=== PATIENT | male | born 1965 | race Caucasian/White ===

== ENCOUNTER 2017-06-03 11:34 | Emergency (ER) | payer BC ==
[~2017-06-03] VITALS: Ht 177.8 cm; Wt 86.2 kg
--- NOTE | ~2017-06-03 | CR142 ---
[facility] A Service of [facility] RADIOLOGY TEXT RESULTS PATIENT: SEGREI BEATTY LOCATION: SED : 65 UNIT #: [id number] AGE: [address]: DONNY OLSON SEX: M ORDER DR: [id number] [place] [id number] E MR#: [id number] Acc #: [id number] NAME: SERGEI BEATTY : 1965 SEX: M STUDY DATE/TIME: 06/03/2017 11:59 UNIT: SED ROOM: STUDY DESCRIPTION: CR Hand Min 3 Views Rt Attending Physician: Michelle Oro Ordering Physician: Michelle Oro Primary Care Physician: No Primary Care Physician MEDICAL IMAGING REPORT This report is preliminary unless electronic signature is present. EXAM 3 views right hand INDICATION Right hand pain and decreased mobility for 1 month. No known injury. FINDINGS No acute fracture or subluxation of the right hand is identified. Really don't see any significant degenerative change. No aggressive osseous abnormalities are seen. I do think the patient may have some soft tissue swelling about the wrist. IMPRESSION No acute findings involving the hand. I do question if the patient has some soft tissue swelling about the wrist. Dictated by... Jenn Pink M.D. THIS IS AN ELECTRONICALLY VERIFIED REPORT Jenn Pink M.D. at 06/04/2017 5:04 PM AFF/df TD: 06/04/2017 12:35 JOB #: [id number] MEDICAL IMAGING REPORT Page 1 of 1
--- NOTE | ~2017-06-03 | CR282 ---
[facility] A Service of [facility] & [facility] RADIOLOGY TEXT RESULTS PATIENT: SERGEI BEATTY LOCATION: SED : 65 UNIT #: [id number] AGE: [address]: DONNY OLSON SEX: M ORDER DR: [id number] [place] [id number] E MR#: [id number] Acc #: [id number] NAME: SERGEI BEATTY : 1965 SEX: M STUDY DATE/TIME: 06/03/2017 11:59 UNIT: SED ROOM: STUDY DESCRIPTION: CR Wrist Min 3 View Rt Attending Physician: Michelle Oro Ordering Physician: Michelle Oro Primary Care Physician: No Primary Care Physician MEDICAL IMAGING REPORT This report is preliminary unless electronic signature is present. EXAM 3 views right wrist INDICATION Right hand and wrist pain, decreased mobility in the right hand for 1 month. No known injury. FINDINGS No acute fracture or subluxation of the right wrist is identified. I do question if the patient has some soft tissue swelling about the wrist. Correlation with physical exam findings is recommended. No significant degenerative change or aggressive osseous abnormalities are seen. IMPRESSION No acute osseous abnormalities involving the right wrist. I do question if the patient has some soft tissue swelling about the wrist. Correlation with physical exam findings is suggested. Dictated by... Jenn Pink M.D. THIS IS AN ELECTRONICALLY VERIFIED REPORT Jenn Pink M.D. at 06/04/2017 5:04 PM AFF/df TD: 06/04/2017 12:38 JOB #: [id number] MEDICAL IMAGING REPORT Page 1 of 1
== END 2017-06-03 12:52 | disposition home or self-care (01) ==
LOC: SED 11:34
DX: M25.531 Pain in right wrist (principal); M79.641 Pain in right hand; G89.29 Other chronic pain; F17.210 Nicotine dependence, cigarettes, uncomplicated
CPT/HCPCS: 29260; 73110; 73130; 99283